=== PATIENT | female | born 1960 | race Caucasian/White ===

== ENCOUNTER → 2016-06-06 | Outpatient (CLI) | payer OTHER ==
--- NOTE | 2016-06-06 12:11 | MR ---
EXAMINATION TYPE: MR brain wo con DATE OF EXAM: 06/06/2016 11:54 AM COMPARISON: NONE HISTORY: weakness, instability in gait per order. Additional symptoms of dizziness and left-sided hea ring loss per patient. TECHNIQUE: Multiplanar, multisequence images of the brain and brainstem is performed without IV contrast. FINDINGS: Diffusion weighted images demonstrate no evidence of a recent infarct or other diffusion abnormality. There is no worrisome extra-axial fluid collection. There is ventricular and sulcal prominence consis tent with mild age-related cerebral atrophy. There are some scattered foci of T2 hyperintensity seen throughout the white matter bilaterally. Approximately 15-20 scattered lesions are felt present. Lesi ons are nonspecific in appearance and distribution but are most likely on basis of product of chronic small vessel ischemic change in patient of this age. Some lesions in the mario are present. Midline structures demonstrate normal morphology. The craniocervical junction appears within normal limits. Normal vascular flow voids are present. The visualized sinuses are clear and the globes are i ntact. IMPRESSION: 1. Mild to moderate diffuse cerebral atrophy and chronic small vessel ischemic change is felt present . 2. Increased fluid signal left mastoid air cells raises concern for a left-sided mastoiditis, clinica l correlation is advised.
== END | disposition home or self-care (01) ==
LOC: RADMRIMAIN 10:55
PROVIDERS: ATTEND Psychiatry & Neurology Pain Medicine
DX: R53.1 Weakness (principal); R26.9 Unspecified abnormalities of gait and mobility
CPT/HCPCS: 70551

== ENCOUNTER → 2016-09-19 | Outpatient (CLI) | payer OTHER ==
--- NOTE | 2016-09-19 13:14 | MR ---
EXAMINATION TYPE: MR lumbar spine wo con DATE OF EXAM: 09/19/2016 1:06 PM COMPARISON: NONE HISTORY: lumbago TECHNIQUE: T1 and T2 axial and sagittal images of the lumbar spine are submitted. FINDINGS: There is no abnormal signal seen within the visualized spinal cord or paraspinal soft tissu es. At L1-2 there is moderate degenerative disc disease. There is facet arthropathy. No foraminal encroac hment or canal stenosis. At L2-3 there is no disc herniation or canal stenosis. No foraminal encroachment. At L3-4 there is no disc herniation or canal stenosis. No foraminal encroachment. Mild hypertrophic c hange of the facets. At L4-5 there is moderate disc disease with hypertrophic change of the facets and circumferential dis c bulging with mild effacement of thecal sac. Ligamentum flavum hypertrophy contributes to mild canal stenosis. Mild bilateral foraminal encroachment. At L5-S1 there is severe degenerative disc disease with discogenic marrow changes. There is facet art hropathy but no canal stenosis. Mild bilateral foraminal encroachment. No discrete herniation. IMPRESSION: 1. Multilevel degenerative disc disease. With facet arthropathy. Most marked findings at L4-5 and L5- S1. 2. Mild central stenosis L4-5 due to hypertrophic changes and circumferential disc bulging.
== END | disposition home or self-care (01) ==
LOC: RADMRIMAIN 12:24
PROVIDERS: ATTEND Psychiatry & Neurology Pain Medicine
DX: M48.06 Spinal stenosis, lumbar region (principal); M51.26 Other intervertebral disc displacement, lumbar region; M51.37 Other intervertebral disc degeneration, lumbosacral region; M46.97 Unspecified inflammatory spondylopathy, lumbosacral region
CPT/HCPCS: 72148